=== PATIENT | female | born 1980 | race Caucasian/White ===

== ENCOUNTER 2019-07-18 13:37 | Inpatient (IN) | payer SELFPAY ==
[2019-07-18 13:43] VITALS: BP 223/110; PULSE 106; RESP 18; TEMP 36.7; O2SAT 96; BMI 33.9
--- NOTE | 2019-07-18 14:05 | W.ED.AMS ---
HPI - Altered Mental Status General: Chief Complaint: Altered Mental Status Stated Complaint: BIZARRE BEHAVIOR Time Seen by Provider: 07/18/19 13:50 Source: EMS Mode of arrival: EMS Limitations: altered mental status History of Present Illness: HPI narrative: Patient was brought in by EMS and law enforcement after being found sitting on the side of the road and talking to herself. She had monitored some things about asking God to take it with the dirt out of her. According to her boyfriend as was reported to me by EMS, the patient has been this way all day. He believes she may have taken some methamphetamine. The patient was aggressive combative and violent in the ambulance and she was given some ketamine on route. Patient is not speaking to me, is alert and is exhibiting bizarre behavior. MD complaint: intoxication Onset (ago): unknown Severity: severe Context: drug abuse Associated symptoms: Reports delusions Review of Systems General: Reports: ROS unobtainable due to mental status Physical Exam Const: COMMON NORMALS: alert EXAM LIMITATIONS: altered mental status GENERAL APPEARANCE: combative and disheveled ORIENTATION/CONSCIOUSNESS: not oriented to person, not oriented to place and not oriented to time Resp: COMMON NORMALS: clear to auscultation bilaterally AUSCULTATION: clear to auscultation bilaterally Cardio: COMMON NORMALS: regular rate, regular rhythm, S1 normal heart sound, S2 normal heart sound, no gallops, no clicks and no murmurs RATE: regular rate RHYTHM: regular rhythm HEART SOUNDS: S1 normal and S2 normal Extremity: COMMON NORMALS: normal to inspection, normal capillary refill and no clubbing, cyanosis or edema Neuro: SENSORIUM/ORIENTATION: Yes alert, No oriented to person, No oriented to place, No oriented to time and No orientation impaired Psych: THOUGHT CONTENT: Yes delusion(s) OTHER: unable to assess due to her present state Course Consultations: Consultation #1: Dr. Crump, psychiatrist. He kindly accepted her to his service. Time: 17:20 Vital Signs: Vital signs: Vital Signs Temperature 98.1 F 07/18/19 13:43 Pulse Rate 84 07/18/19 22:05 Respiratory Rate 18 07/18/19 22:05 Blood Pressure 191/135 07/18/19 22:05 Pulse Oximetry 96 07/18/19 22:05 MDM - Altered Mental Status MDM Narrative: Medical decision making narrative: 39-year-old female patient was brought in today in acute psychosis. Psychosis is likely precipitated by methamphetamine abuse. While in the emergency department she had mild hypokalemia and she was given oral potassium. She is medically cleared and admitted to the neuropsychiatric unit for further evaluation and management. Medical Records: Attestation: I reviewed the patient's medical records. Lab Data: Labs: Lab Results 07/18/19 07/18/19 07/18/19 Range/Units 14:00 14:00 14:00 WBC (4.0-10.0) 10^3/ uL RBC (4.1-5.3) 10^6/u L Hgb (11.5-15.3) g/dL Hct (37.0-47.0) % MCV (81-99) fL MCH (28.0-34.0) pg MCHC (30.0-36.0) g/dL RDW (12.1-15.1) % Plt Count (130-400) 10^3/c mm MPV (7.4-10.4) fL Neut % (Auto) % Lymph % (Auto) % Redwood % (Auto) % Eos % (Auto) % Baso % (Auto) % Neut # (Auto) (1.8-7.7) 10^3/u L Lymph # (Auto) (0.8-4.8) 10^3/u L Redwood # (Auto) (0.2-0.9) 10^3/u L Eos # (Auto) (0.0-0.8) 10^3/u L Baso # (Auto) (0.0-0.1) 10^3/u L Nucleated RBC % (a uto) % Nucleated RBCs # /100WBC Sodium (136-145) mmol/L Potassium (3.5-5.1) mmol/L Chloride (98-107) mmol/L Carbon Dioxide (22-29) mmol/L Anion Gap (5-19) BUN (6-20) mg/dL Creatinine (0.5-0.9) mg/dL GFR Calculation (90-130) mL/min Glucose (65-115) mg/dL Calculated Osmolal ity (285-295) mOsm/k g Calcium (8.5-10.5) mg/dL Total Bilirubin (0.15-1.2) mg/dL AST (0-32) U/L ALT (0-33) U/L Alkaline Phosphata se (35-105) IU/L Total Protein (6.6-8.7) g/dL Albumin (3.5-5.2) g/dL Globulin (1.3-4.6) g/dL TSH (0.27-4.20) uIU/ mL HCG, Qual Negative (Negative) Urine Color Yellow (Yellow) Urine Appearance Sl hazy (CLEAR) Urine pH 6.5 (5-7) Ur Specific Gravit y 1.010 (1.005-1.030) Urine Protein 1+ H (Negative) Urine Glucose (UA) Norm (Normal) Urine Ketones Negative (Negative) Urine Blood 2+ H (Negative) Urine Nitrate Negative (Negative) Urine Bilirubin Neg (NEGATIVE) Urine Urobilinogen Norm (Negative) mg/dL Ur Leukocyte Gin ase Negative (Negative) Urine RBC 0-4 H (0-2) /hpf Urine WBC 0-4 H (0-5) /hpf Ur Squamous Epith Cells 10-15 H (0-5) Urine Bacteria 1+ H (NONE) Hyaline Casts 0-4 H Urine Mucus 1+ Urine Opiates Scre en Negative (Negative) ng/mL Acetaminophen (10-30) ug/mL Ur Barbiturates Sc reen Negative (Negative) ng/mL Ur Phencyclidine S crn Negative (Negative) ng/mL Ur Amphetamines Sc reen Positive H (Negative) ng/mL U Benzodiazepines Scrn Negative (Negative) ng/mL Urine Cocaine Scre en Negative (Negative) ng/mL U Marijuana (THC) Screen Negative (Negative) ng/mL Ethyl Alcohol (0-10) mg/dL 07/18/19 07/18/19 Range/Units 14:37 14:37 WBC 13.3 H (4.0-10.0) 10^3/ uL RBC 4.21 (4.1-5.3) 10^6/u L Hgb 10.7 L (11.5-15.3) g/dL Hct 33.3 L (37.0-47.0) % MCV 79.1 L (81-99) fL MCH 25.4 L (28.0-34.0) pg MCHC 32.1 (30.0-36.0) g/dL RDW 13.4 (12.1-15.1) % Plt Count 498 H (130-400) 10^3/c mm MPV 9.4 (7.4-10.4) fL Neut % (Auto) 83.8 % Lymph % (Auto) 12.4 % Redwood % (Auto) 2.9 % Eos % (Auto) 0.2 % Baso % (Auto) 0.4 % Neut # (Auto) 11.1 H (1.8-7.7) 10^3/u L Lymph # (Auto) 1.6 (0.8-4.8) 10^3/u L Redwood # (Auto) 0.4 (0.2-0.9) 10^3/u L Eos # (Auto) 0.0 (0.0-0.8) 10^3/u L Baso # (Auto) 0.1 (0.0-0.1) 10^3/u L Nucleated RBC % (a uto) 0 % Nucleated RBCs # 0.0 /100WBC Sodium 140 (136-145) mmol/L Potassium 2.9 L (3.5-5.1) mmol/L Chloride 98 (98-107) mmol/L Carbon Dioxide 26 (22-29) mmol/L Anion Gap 18.9 (5-19) BUN 10 (6-20) mg/dL Creatinine 0.8 (0.5-0.9) mg/dL GFR Calculation 80.3 L (90-130) mL/min Glucose 134 H (65-115) mg/dL Calculated Osmolal ity 288 (285-295) mOsm/k g Calcium 9.7 (8.5-10.5) mg/dL Total Bilirubin 0.5 (0.15-1.2) mg/dL AST 15 (0-32) U/L ALT 15 (0-33) U/L Alkaline Phosphata se 100 (35-105) IU/L Total Protein 8.1 (6.6-8.7) g/dL Albumin 4.6 (3.5-5.2) g/dL Globulin 3.5 (1.3-4.6) g/dL TSH 2.70 (0.27-4.20) uIU/ mL HCG, Qual (Negative) Urine Color (Yellow) Urine Appearance (CLEAR) Urine pH (5-7) Ur Specific Gravit y (1.005-1.030) Urine Protein (Negative) Urine Glucose (UA) (Normal) Urine Ketones (Negative) Urine Blood (Negative) Urine Nitrate (Negative) Urine Bilirubin (NEGATIVE) Urine Urobilinogen (Negative) mg/dL Ur Leukocyte Gin ase (Negative) Urine RBC (0-2) /hpf Urine WBC (0-5) /hpf Ur Squamous Epith Cells (0-5) Urine Bacteria (NONE) Hyaline Casts Urine Mucus Urine Opiates Scre en (Negative) ng/mL Acetaminophen < 5.0 L (10-30) ug/mL Ur Barbiturates Sc reen (Negative) ng/mL Ur Phencyclidine S crn (Negative) ng/mL Ur Amphetamines Sc reen (Negative) ng/mL U Benzodiazepines Scrn (Negative) ng/mL Urine Cocaine Scre en (Negative) ng/mL U Marijuana (THC) Screen (Negative) ng/mL Ethyl Alcohol < 10 (0-10) mg/dL Discharge Plan Discharge Patient Disposition: Admitted As Inpatient Admit Provider: Lan Crump Clinical Impression: Acute psychosis, Substance abuse, Acute hypokalemia Condition: Stable Coding Level of Care Code ED Planning Consultant for Yelena Fwd Exam Detailed
[2019-07-18 14:18] LABS: HCG Qualitative Urine. Negative (Negative)
[2019-07-18 14:49] LABS: Basophils # 0.1 10^3/uL (0.0-0.1); Basophils % 0.4 %; Eosinophils % 0.2 %; Hematocrit 33.3 % (37.0-47.0); Hemoglobin 10.7 g/dL (11.5-15.3); Lymphocytes # 1.6 10^3/uL (0.8-4.8); Lymphocytes % 12.4 %; Mean Corpuscular HGB Conc 32.1 g/dL (30.0-36.0); Mean Corpuscular Hemoglobin 25.4 pg (28.0-34.0); Mean Corpuscular Volume 79.1 fL (81-99); Mean Platelet Volume 9.4 fL (7.4-10.4); Monocytes # 0.4 10^3/uL (0.2-0.9); Monocytes % 2.9 %; Neutrophils # 11.1 10^3/uL (1.8-7.7); Neutrophils % 83.8 %; Nucleated Red Blood Cells % 0 %; Platelet Count 498 10^3/cmm (130-400); Red Blood Count 4.21 10^6/uL (4.1-5.3); Red Cell Distribution Width 13.4 % (12.1-15.1); White Blood Count 13.3 10^3/uL (4.0-10.0)
[2019-07-18 15:16] LABS: Alanine Aminotransferase 15 U/L (0-33); Albumin Level 4.6 g/dL (3.5-5.2); Alkaline Phosphatase 100 IU/L (35-105); Anion Gap 18.9 (5-19); Aspartate Amino Transferase 15 U/L (0-32); Blood Urea Nitrogen 10 mg/dL (6-20); Calcium 9.7 mg/dL (8.5-10.5); Carbon Dioxide 26 mmol/L (22-29); Chloride 98 mmol/L (98-107); Globulin 3.5 g/dL (1.3-4.6); Glomerular Filtration Rate 80.3 mL/min (90-130); Glucose 134 mg/dL (65-115); Osmolality Calculated 288 mOsm/kg (285-295); Sodium 140 mmol/L (136-145); Total Bilirubin 0.5 mg/dL (0.15-1.2); Total Protein 8.1 g/dL (6.6-8.7)
[2019-07-18 15:40] LABS: Acetaminophen < 5.0 ug/mL (10-30); Alcohol Level < 10 mg/dL (0-10)
[2019-07-18 15:41] LABS: Potassium 2.9 mmol/L (3.5-5.1)
[2019-07-18 16:37] LABS: Glucose Urine UA Norm (Normal); Protein Urine 1+ (Negative); Urine Appearance SL Hazy (CLEAR); Urine Color Yellow (Yellow); pH Urine 6.5 (5-7)
[2019-07-18 16:38] LABS: Add Urine Microscopic? YES; Bilirubin Urine Neg (NEGATIVE); Blood Urine 2+ (Negative); Ketones Urine Negative (Negative); Leukocyte Esterase Urine Negative (Negative); Nitrate Urine Negative (Negative); Urobilinogen Urine Norm (Negative)
[2019-07-18 16:42] LABS: Add Urine Culture? No; Bacteria Urine 1+; Hyaline Casts Urine 0-4; Mucus Urine 1+; RBC Urine 0-4 /hpf (0-2); WBC Urine 0-4 /hpf (0-5)
[2019-07-18 16:46] LABS: Amphetamines Screen Urine Positive (Negative); Barbiturates Screen Urine Negative (Negative); Benzodiazepines Screen Urine Negative (Negative); Cocaine Screen Urine Negative (Negative); Opiate Screen Urine Negative (Negative); PCP Screen Urine Negative (Negative); THC Screen Urine Negative (Negative)
[2019-07-18] MEDS: potassium chloride oral liq 20 mEq/15 mL UDC 40 MEQ PO (17:49)
[2019-07-18] MEDS: potassium chloride premix 40 MEQ/100 ML PREMIX 25 MEQ IV (19:55)
[2019-07-18] MEDS: ziprasidone 20 mg/mL SDV IM (19:55)
[2019-07-18 22:00] VITALS: BP 177/76; PULSE 85; RESP 19; TEMP 36.8; O2SAT 98
[2019-07-18 22:05] VITALS: BP 191/135; PULSE 84; RESP 18; O2SAT 96
[2019-07-19 05:00] VITALS: BMI 33.9
[2019-07-19 06:00] VITALS: BP 156/99; PULSE 92; RESP 17; TEMP 37.2; O2SAT 96
[2019-07-19] MEDS: LORazepam 2 mg Tablet PO (07:26)
--- NOTE | 2019-07-19 07:28 | PC.NURSE ---
Pt appeared very anxious and ashamed. Melissa CATHERINEcharge preparation technician suggested we give her PO Ativan. PT agreeds that she needed some ativan. med administered po without complications.
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
[2019-07-19 13:06] VITALS: BP 142/80; PULSE 70; RESP 18; TEMP 36.6; O2SAT 97
[2019-07-19] MEDS: ARIPiprazole 10 mg Tablet 5 MG PO (17:35)
[2019-07-19] MEDS: desvenlafaxine 50 mg Tablet PO (17:37)
[2019-07-19 20:38] VITALS: BP 144/91; PULSE 97; RESP 18; TEMP 37.2; O2SAT 95
[2019-07-20 06:00] VITALS: BP 137/89; PULSE 77; RESP 18; TEMP 36.8; O2SAT 96
[2019-07-20] MEDS: desvenlafaxine 50 mg Tablet PO (08:29)
[2019-07-20] MEDS: ARIPiprazole 10 mg Tablet 5 MG PO (08:30)
[2019-07-20 13:27] VITALS: BP 134/96; PULSE 74; RESP 18; TEMP 36.9; O2SAT 97
--- NOTE | 2019-07-20 15:03 | PM.NPN ---
Subjective NPU Subjective: Interval history: patient reports that she is starting to feel better but still does not feel quite like she used to. She is tolerating initiationn of medication well. She did not sleep all night. She reports anxiety while on the unit. She denies suicidal or homicidal ideation. Mental Status Exam MSE Comments: This is an obese, white female, with streaks of blue hair at the edge of her hair on her face, with multiple tattoos on her exposed skin, with adequate dress, and limited grooming and eye contact. No abnormal movements, except for psychomotor retardation. Speech was nl rate and volume . Mood described as sad; affect c/w depressed moodl. Thought process more organized . Thought content: patient denied any suicidal or homicidal ideation t. She denied homicidal ideation. There were no delusions reported, but a kind of hyper-mormonism supernatural kind of delusional network appears to exist. She denied any auditory or visual hallucinations. Attention and concentration are limited with some awkward pauses, and memory is somewhat reliable, but none were formally tested. She is alert and oriented times three. Insight and judgment are impaired. Cognition: Level of Consciousness: Combative, Disoriented and Inappropriate Patient Cognition Impaired: Yes Ability to Follow Directions: Poor Patient Orientation (long list): Person Hallucination Type: None Affect: Affect Description: Appropriate Behavior: Patient Behavior: Appropriate and Cooperative Speech Pattern: Appropriate and Clear Vitals/I&O/Wt Last Vital Signs Temp 98.4 F 07/20/19 13:27 Pulse 74 07/20/19 13:27 Resp 18 07/20/19 13:27 BP 134/96 07/20/19 13:27 Pulse Ox 97 07/20/19 13:27 Weight last 48 hrs Weight 95.254 kg Weight 95.254 kg Data NPU : 07/18/19 14:37 07/18/19 14:37 A&P Assessment and plan (1) Acute psychosis: This is a 39 year old, female, with a history of psychiatric hospitalizations, but none for a while, with some history of addiction that is unclear in relation to methamphetamine, a reported history of trauma, lethality, and medication management reporting that she has been off of her medication and recently had some alcohol or other drug use, which may be the nidus of this confusion, with current UDS positive for methamphetamine. Continue current medication, except: continue Abilify 5 mg po qam and titrate to effect as quickly as she allows. continue Pristiq 50 mg po qam. Start trazodone 50 mg at bedtime and again prn insomnia lorazepam 0.5 mg bid prn anxiety ONLY WHILE IN THE HOSPITAL Continue q 15-minute checks. Encourage individual, group, and milieu therapy. Will work with social worker school to identify outpatient services and consider whether sober living would be indicated, at the highest level of care to which she is willing to commit. Status: Acute (2) Substance abuse: Status: Acute (3) Acute hypokalemia: Status: Acute Involuntary Hold Information 96 Hour Hold: 96 Hour Involuntary Admission: Yes 96 Hour Hold Ending Date: 07/24/19 96 Hour Hold Ending Time: 17:48 Attestations NPU Medical Necessity Statement*: patient to remain in the hospital another 2-3 nights until medication efficacy and tolerability are established. Coding Level of Care Code Acute Concrete Spreader for Yelena Wilder Diagnoses Acute psychosis F23 Substance abuse F19.10 Acute hypokalemia E87.6
[2019-07-20] MEDS: LORazepam 0.5 mg Tablet PO (15:15)
[2019-07-20 21:05] VITALS: BP 141/94; PULSE 90; RESP 21; TEMP 37.1; O2SAT 95
--- NOTE | 2019-07-20 21:10 | PC.NURSE ---
Attempted to give pt scheduled Trazodone, pt refused med.
[2019-07-21 06:00] VITALS: BP 145/87; PULSE 79; RESP 18; TEMP 36.8; O2SAT 98
[2019-07-21] MEDS: desvenlafaxine 50 mg Tablet PO (08:30)
[2019-07-21] MEDS: ARIPiprazole 10 mg Tablet 5 MG PO (08:30)
--- NOTE | 2019-07-21 10:20 | PM.NPN ---
Subjective NPU Subjective: Interval history: patient reports that she feels so fatigued that she refused the trazodone last night. However, she continued to awaken throughout the night. She denies suicidal or homicidal ideation. Mental Status Exam MSE Comments: This is an obese, white female, with streaks of blue hair at the edge of her hair on her face, with multiple tattoos on her exposed skin, with adequate dress, and limited grooming and eye contact. No abnormal movements, except for psychomotor retardation. Speech was nl rate and volume . Mood described as sad; affect c/w depressed moodl. Thought processes organized . Thought content: patient denied any suicidal or homicidal ideation t. She denied homicidal ideation. There were no delusions reported, but a kind of hyper-rastafarian supernatural kind of delusional network appears to exist. She denied any auditory or visual hallucinations. Attention and concentration are good, and memory is reliable, but none were formally tested. She is alert and oriented times three. Insight and judgment are good. Cognition: Level of Consciousness: Combative, Disoriented and Inappropriate Patient Cognition Impaired: Yes Ability to Follow Directions: Poor Patient Orientation (long list): Person Hallucination Type: None Affect: Affect Description: Appropriate Behavior: Patient Behavior: Appropriate and Cooperative Speech Pattern: Appropriate and Clear Vitals/I&O/Wt Last Vital Signs Temp 98.3 F 07/21/19 06:00 Pulse 79 07/21/19 06:00 Resp 18 07/21/19 06:00 BP 145/87 07/21/19 06:00 Pulse Ox 98 07/21/19 06:00 Data NPU : 07/18/19 14:37 07/18/19 14:37 A&P Assessment and plan (1) Acute psychosis: This is a 39 year old, female, with a history of psychiatric hospitalizations, but none for a while, with some history of addiction that is unclear in relation to methamphetamine, a reported history of trauma, lethality, and medication management reporting that she has been off of her medication and recently had some alcohol or other drug use, which may be the nidus of this confusion, with current UDS positive for methamphetamine. Continue current medication, except: continue Abilify 5 mg po qam and titrate to effect as quickly as she allows. continue Pristiq 50 mg po qam. Start trazodone 50 mg at bedtime and again prn insomnia lorazepam 0.5 mg bid prn anxiety ONLY WHILE IN THE HOSPITAL Hospital day #3: will hold Abilify and assess the degree to which it is causing her fatigue and then try the trazodone at bedtime tonight. Continue q 15-minute checks. Encourage individual, group, and milieu therapy. Will work with health and social care teacher to identify outpatient services and consider whether sober living would be indicated, at the highest level of care to which she is willing to commit. Status: Acute (2) Substance abuse: Status: Acute (3) Acute hypokalemia: Status: Acute Involuntary Hold Information 96 Hour Hold: 96 Hour Involuntary Admission: Yes 96 Hour Hold Ending Date: 07/24/19 96 Hour Hold Ending Time: 17:48 Attestations NPU Medical Necessity Statement*: Patient will remain in the hospital another 1-2 midnights until her medication regimen is perceived as effective and tolerable. Coding Level of Care Code Acute Voip Network Engineer for Yelena Wilder Diagnoses Acute psychosis F23 Substance abuse F19.10 Acute hypokalemia E87.6
[2019-07-21 12:45] VITALS: BP 143/90; PULSE 74; RESP 18; TEMP 36.9; O2SAT 97
--- NOTE | 2019-07-21 20:29 | PC.NURSE ---
PT OFFERED SCHEDULED TRAZODONE, PT REFUSED MED.
[2019-07-21 21:13] VITALS: BP 147/96; PULSE 82; RESP 18; TEMP 37.3; O2SAT 98
[2019-07-22 06:00] VITALS: BP 138/91; PULSE 77; RESP 18; TEMP 37.1; O2SAT 96
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
[2019-07-22] MEDS: desvenlafaxine 50 mg Tablet PO (11:26)
[2019-07-22 12:37] VITALS: BP 138/91; PULSE 77; RESP 18; TEMP 37.1; O2SAT 96
== END 2019-07-22 12:50 | disposition home or self-care (01) | DRG 885 ==
LOC: ER 17:54 → NP 17:56
PROVIDERS: Admitting Provider Psychiatry & Neurology Psychiatry; Emergency Provider Family Medicine; Family Provider Nurse Practitioner; PCP Nurse Practitioner; Visit Provider Psychiatry & Neurology Psychiatry
DX: F23 Brief psychotic disorder (principal); R45.851 Suicidal ideations; E87.6 Hypokalemia; F17.210 Nicotine dependence, cigarettes, uncomplicated
CPT/HCPCS: 12345; 36415; 80053; 80306; 80307; 81001; 81025; 84443; 85025; 96372; 99285; A9270; J3480; J3486

== ENCOUNTER 2019-08-31 15:31 | Emergency (ER) | payer SELFPAY ==
[2019-08-31 15:44] VITALS: BP 154/94; PULSE 79; RESP 14; TEMP 35.8; O2SAT 98; BMI 38.2
--- NOTE | 2019-08-31 16:49 | CTR_ITS ---
PROCEDURE INFORMATION: Exam: CT Head Without Contrast Exam date and time: 08/31/2019 5:02 PM Age: 39 years old Clinical indication: Pain and injury or trauma; Fall; Headache; Injury details: Hit back and RT side of head on step; Additional info: Headache after fall and hitting head TECHNIQUE: Imaging protocol: Computed tomography of the head without contrast. Radiation optimization: All CT scans at this facility use at least one of these dose optimization techniques: automated exposure control; mA and/or kV adjustment per patient size (includes targeted exams where dose is matched to clinical indication); or iterative reconstruction. COMPARISON: No relevant prior studies available. RADIATION DOSE METRICS: Total DLP: 754.72 mGy-cm FINDINGS: Brain: Normal. No hemorrhage. Unremarkable white matter. No mass effect. Ventricles: Normal. No ventriculomegaly. Bones/joints: Unremarkable. No acute fracture. Sinuses: Visualized sinuses are unremarkable. No fluid levels. Mastoid air cells: Visualized mastoid air cells are well aerated. Soft tissues: Unremarkable. CT/CT head wo con* [id number] IMPRESSION: No acute intracranial abnormality. Radiation Dose CTDIVOL = (mGy): DLP = 754.72 (mGy-cm)
--- NOTE | 2019-08-31 17:37 | ED_ITS ---
HPI - Headache General: Chief Complaint: Headache Stated Complaint: fell & hit head on 08/29 Time Seen by Provider: 08/31/19 16:57 History of Present Illness: HPI Narrative: Patient complains about headache started today she fell yesterday hit the back of her head on stairs she said really did not hit that hard but her head is been hurting Tylenol not helping she like some medication help with a headache. MD elicited complaint: headache Pertinent past history: recent trauma Onset (ago): day(s) Onset description: suddenly Location: occipital Severity: mild Quality & Timing: aching Exacerbating factors: none Relieving factors: nothing Context: occurred with exertion/activity (On stairs) Associated symptoms: Reports no associated symptoms; Deny chest pain, fever(s), nausea, rash or vomiting Review of Systems Const: Denies: fever(s), chills or body aches Eyes: Denies: change in vision or blurry vision ENMT: Denies: throat pain or nasal congestion Card: Denies: chest pain or dyspnea on exertion Resp: Denies: dyspnea, productive cough or non-productive cough GI: Denies: abdominal pain, nausea or vomiting Musc: Denies: extremity pain Skin/Breast: Denies: rash Neuro: Reports: headache(s) Psych: Denies: anxiety or depression Moy/Lymph: Denies: easy bruising PFSH ED PFSH: Social History Smoking and tobacco status: never smoked Physical Exam Const: COMMON NORMALS: no acute distress, average body habitus and patient oriented x3 HENMT: COMMON NORMALS: normocephalic HEAD & SCALP: normal to inspection and normocephalic FACE & SINUS: normal facial exam Eye: COMMON NORMALS: conjunctivae normal GENERAL EYE: appearance normal, both eyes and all related structures CONJUNCTIVA: Yes conjunctivae normal Neck/C-Spine: COMMON NORMALS: full ROM and no JVD GENERAL: Yes trachea midline OTHER: To trapezius both sides no cervical spine pain Chest: COMMONS NORMALS: normal inspection of the chest Resp: COMMON NORMALS: normal respiratory effort and clear to auscultation bilaterally AUSCULTATION: clear to auscultation bilaterally Cardio: COMMON NORMALS: no JVD, regular rate and regular rhythm RATE: regular rate RHYTHM: regular rhythm GI: COMMON NORMALS: Normal to inspection, nondistended, normoactive bowel sounds present Extremity: COMMON NORMALS: normal to inspection and full ROM Neuro: COMMON NORMALS: patient oriented x3 and CN's II-XII intact bilaterally Course Vital Signs: Vital signs: Vital Signs Temperature 96.4 F L 08/31/19 15:44 Pulse Rate 79 08/31/19 15:44 Respiratory Rate 14 08/31/19 15:44 Blood Pressure 154/94 08/31/19 15:44 Pulse Oximetry 98 08/31/19 15:44 Discharge Plan Discharge Patient Disposition: Home, Self-Care Clinical Impression: Tension headache Condition: Stable Prescriptions: New Fioricet 50-300-40 mg capsule 1 cap PO Q6H PRN (Reason: pain) Qty: 10 RF: 0 No Action lorazepam 0.5 mg Tablet 0.5 mg PO BID PRN (Reason: Anxiety) Qty: 30 RF: 4 levothyroxine 150 mcg Tablet 75 mcg PO DAILY Qty: 30 RF: 4 Premarin 0.625 mg Tablet 0.625 mg PO DAILY Qty: 30 RF: 4 aripiprazole 10 mg Tablet 5 mg PO DAILY Qty: 30 RF: 4 desvenlafaxine succinate [Pristiq] 50 mg Tablet Extended Release 24 Hr 50 mg PO DAILY Qty: 30 RF: 4 Excedrin Migraine 250-250-65 mg Tablet 2 tab PO PRN RF: 0 trazodone 50 mg tablet 50 mg PO BEDTIME PRN (Reason: Sleep) RF: 0 Discharge Orders: Discharge Order (Routine); Ordered 08/31/19 Ordered By: Kevin Frausto Referrals: Carolyn Orozco, PLODDING OPERATOR [Primary Care Provider] - Discharge Diet: Usual diet Discharge Activity: Increase activity as tolerated Patient Instructions: Acute Headache (ED) Activity Restrictions/Additional Instructions: Follow-up with medical provider as directed. Take medications as prescribed. Return to the ER or your medical provider if condition worsens. Please read and understand discharge instructions. If any questions ask please. Coding Level of Care Code ED Endoscopy Support Specialist for Yelena Wilder
[2019-08-31 17:39] VITALS: BP 134/95; PULSE 76; RESP 16; O2SAT 95
== END 2019-08-31 17:39 | disposition home or self-care (01) ==
PROVIDERS: Emergency Provider Nurse Practitioner Family; PCP Nurse Practitioner
DX: G44.209 Tension-type headache, unspecified, not intractable (principal)
CPT/HCPCS: 12345; 70450; 99281; 99282

== ENCOUNTER 2020-01-09 13:42 | Inpatient (IN) | payer MEDICAID, SELFPAY ==
--- NOTE | 2020-01-09 13:48 | ED_ITS ---
HPI - Psych General: Chief Complaint: Psychiatric Symptoms Stated Complaint: PSYCH EVAL Time Seen by Provider: 01/09/20 13:44 Source: patient and EMS Mode of arrival: EMS Limitations: no limitations History of Present Illness: HPI Narrative: 39-year-old female who brought by EMS for psychosis along with depression and suicidality. Patient here does admit to meth use. She is very difficult to get a history from. She has flight of ideas and states she cannot do better she will have terrible thoughts. She is whispering to herself. EMS states that she attempted to jump out of the ambulance and stated she want to end it all. Here she will not give me much history at all at this time besides that she is having severe spiritual thoughts but will not go into detail. Associated symptoms: Reports depression Review of Systems Const: Denies: fever(s), chills, body aches or change in appetite Eyes: Denies: blurry vision or eye discomfort ENMT: Denies: throat pain or dental pain Card: Denies: chest pain Resp: Denies: dyspnea GI: Denies: abdominal pain, nausea, vomiting or diarrhea : Denies: dysuria Musc: Denies: neck pain or back pain Skin/Breast: Denies: rash Neuro: Denies: headache(s) Psych: Reports: anxiety, depression and paranoia Moy/Lymph: Denies: easy bruising All/Imm: Denies: urticaria PFSH ED 2 PFSH: Social History Smoking and tobacco status: never smoked Physical Exam Const: COMMON NORMALS: no acute distress, patient oriented x3 and healthy appearing HENMT: COMMON NORMALS: normocephalic and atraumatic HEAD & SCALP: normocephalic and atraumatic Eye: COMMON NORMALS: Equal, round and reactive pupils present and EOMs intact bilaterally PUPIL: Yes Equal, round and reactive pupils present Neck/C-Spine: COMMON NORMALS: full ROM and supple Chest: COMMONS NORMALS: normal inspection of the chest and normal palpation of entire chest wall Resp: COMMON NORMALS: normal respiratory effort, No retractions, No use of accessory muscles and clear to auscultation bilaterally AUSCULTATION: clear to auscultation bilaterally Cardio: COMMON NORMALS: regular rate, regular rhythm and No murmurs present (Cardio) RATE: regular rate RHYTHM: regular rhythm GI: COMMON NORMALS: Normal to inspection, nondistended, normoactive bowel sounds present, Soft to palpation, non-tender and no masses PALPATION: Yes Soft to palpation Extremity: COMMON NORMALS: normal to inspection and full ROM Neuro: COMMON NORMALS: patient oriented x3, moves all extremities and no focal motor deficits Psych: COMMON NORMALS: cooperative APPEARANCE: Yes disheveled ATTITUDE: Yes paranoid and Yes Withdrawn affect present ACTIVITY/MOTOR BEHAVIOR: Yes fidgeting MOOD & AFFECT: Yes depressed mood and Yes anxious THOUGHT PROCESS: disorganized and Illogical thought process present Skin: COMMON NORMALS: no rashes or lesions noted and no wounds GENERAL SKIN EXAM: no rashes or lesions noted MDM - Psych MDM Narrative: Medical decision making narrative: Patient presents here with suicidal ideation along with acute psychosis. This is likely drug-induced. Patient had to be sedated here she was becoming combative. Patient is medically cleared I spoke to Dr. Germain and will admit. Lab Data: Labs: Lab Results 01/09/20 01/09/20 01/09/20 Range/Units 14:36 14:36 14:46 WBC 11.3 H (4.0-10.0) 10^3/ uL RBC 4.26 (4.1-5.3) 10^6/u L Hgb 11.0 L (11.5-15.3) g/dL Hct 34.3 L (37.0-47.0) % MCV 80.5 L (81-99) fL MCH 25.8 L (28.0-34.0) pg MCHC 32.1 (30.0-36.0) g/dL RDW 14.6 (12.1-15.1) % Plt Count 559 H (130-400) 10^3/c mm MPV 9.1 (7.4-10.4) fL Neut % (Auto) 71.0 % Lymph % (Auto) 18.1 % Deuel % (Auto) 5.1 % Eos % (Auto) 4.7 % Baso % (Auto) 0.8 % Neut # (Auto) 8.05 H (1.8-7.7) 10^3/u L Lymph # (Auto) 2.1 (0.8-4.8) 10^3/u L Deuel # (Auto) 0.6 (0.2-0.9) 10^3/u L Eos # (Auto) 0.5 (0.0-0.8) 10^3/u L Baso # (Auto) 0.1 (0.0-0.1) 10^3/u L Nucleated RBC % (a uto) 0 % Nucleated RBCs # 0.0 /100WBC Sodium 135 L (136-145) mmol/L Potassium 3.6 (3.5-5.1) mmol/L Chloride 99 (98-107) mmol/L Carbon Dioxide 24 (22-29) mmol/L Anion Gap 15.6 (5-19) BUN 16 (6-20) mg/dL Creatinine 0.7 (0.5-0.9) mg/dL GFR Calculation 93.6 (90-130) mL/min Glucose 112 (65-115) mg/dL Calculated Osmolal ity 282 L (285-295) mOsm/k g Calcium 9.4 (8.5-10.5) mg/dL Total Bilirubin 0.5 (0.15-1.2) mg/dL AST 19 (0-32) U/L ALT 19 (0-33) U/L Alkaline Phosphata se 118 H (35-105) IU/L Total Protein 8.2 (6.6-8.7) g/dL Albumin 4.1 (3.5-5.2) g/dL Globulin 4.1 (1.3-4.6) g/dL HCG, Qual Negative (Negative) Salicylates < 0.3 L (3-10) mg/dL Acetaminophen < 5.0 L (10-30) ug/mL Ethyl Alcohol < 10 (0-10) mg/dL Discharge Plan Discharge Patient Disposition: Admitted As Inpatient Clinical Impression: Acute psychosis, Suicidal ideation Condition: Stable Referrals: Carolyn Orozco, WATER TAXI FERRY OPERATOR [Primary Care Provider] - Coding Level of Care Code ED Reducing Salon Attendant for g Fwd Exam Comprehensive
[2020-01-09 13:49] VITALS: BP 140/114; PULSE 95; RESP 18; TEMP 36.8; O2SAT 98
[2020-01-09] MEDS: haloperidol inj 5 mg/mL INJ 1 mL IM (14:06)
[2020-01-09] MEDS: LORazepam 2 mg/mL INJ 1 mL IM (14:07)
[2020-01-09 14:46] LABS: Basophils # 0.1 10^3/uL (0.0-0.1); Basophils % 0.8 %; Eosinophils # 0.5 10^3/uL (0.0-0.8); Eosinophils % 4.7 %; Hematocrit 34.3 % (37.0-47.0); Lymphocytes # 2.1 10^3/uL (0.8-4.8); Lymphocytes % 18.1 %; Mean Corpuscular HGB Conc 32.1 g/dL (30.0-36.0); Mean Corpuscular Hemoglobin 25.8 pg (28.0-34.0); Mean Corpuscular Volume 80.5 fL (81-99); Mean Platelet Volume 9.1 fL (7.4-10.4); Monocytes # 0.6 10^3/uL (0.2-0.9); Monocytes % 5.1 %; Neutrophils # 8.05 10^3/uL (1.8-7.7); Nucleated Red Blood Cells % 0 %; Platelet Count 559 10^3/cmm (130-400); Red Blood Count 4.26 10^6/uL (4.1-5.3); Red Cell Distribution Width 14.6 % (12.1-15.1); White Blood Count 11.3 10^3/uL (4.0-10.0)
[2020-01-09 15:11] LABS: Alanine Aminotransferase 19 U/L (0-33); Albumin Level 4.1 g/dL (3.5-5.2); Alkaline Phosphatase 118 IU/L (35-105); Aspartate Amino Transferase 19 U/L (0-32); Blood Urea Nitrogen 16 mg/dL (6-20); Calcium 9.4 mg/dL (8.5-10.5); Carbon Dioxide 24 mmol/L (22-29); Chloride 99 mmol/L (98-107); Globulin 4.1 g/dL (1.3-4.6); Glomerular Filtration Rate 93.6 mL/min (90-130); Glucose 112 mg/dL (65-115); Osmolality Calculated 282 mOsm/kg (285-295); Sodium 135 mmol/L (136-145); Total Bilirubin 0.5 mg/dL (0.15-1.2); Total Protein 8.2 g/dL (6.6-8.7)
[2020-01-09 15:15] LABS: Acetaminophen < 5.0 ug/mL (10-30); Alcohol Level < 10 mg/dL (0-10); Salicylate < 0.3 mg/dL (3-10)
[2020-01-09 15:17] LABS: Anion Gap 15.6 (5-19); Potassium 3.6 mmol/L (3.5-5.1)
[2020-01-09 15:28] LABS: HCG Qualitative Urine. Negative (Negative)
[2020-01-09 15:54] VITALS: PULSE 99; RESP 20; O2SAT 97
[2020-01-09 16:16] VITALS: BP 127/85; PULSE 80; RESP 16; O2SAT 98
[2020-01-09 16:26] VITALS: BP 148/93; PULSE 84; RESP 18; TEMP 36.9
[2020-01-09 17:58] LABS: Amphetamines Screen Urine Positive (Negative); Barbiturates Screen Urine Negative (Negative); Benzodiazepines Screen Urine Negative (Negative); Cocaine Screen Urine Negative (Negative); Opiate Screen Urine Negative (Negative); PCP Screen Urine Negative (Negative); THC Screen Urine Negative (Negative)
[2020-01-09 22:00] VITALS: BP 132/89; PULSE 92; RESP 17; TEMP 36.7; O2SAT 95
[2020-01-10 06:00] VITALS: BP 129/85; PULSE 83; RESP 16; TEMP 36.7; O2SAT 95
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
[2020-01-10] MEDS: fluoxetine 20 mg Capsule PO (10:00)
[2020-01-10] MEDS: ARIPiprazole 10 mg Tablet 5 MG PO (10:00)
[2020-01-10 14:00] VITALS: BP 136/75; PULSE 86; RESP 16; TEMP 37.1; O2SAT 98
[2020-01-10] MEDS: hyDROXYzine 25 mg Capsule 50 MG PO (20:16)
[2020-01-10] MEDS: trazodone 50 mg Tablet PO (20:16)
[2020-01-10 21:11] VITALS: BP 124/87; PULSE 84; RESP 17; TEMP 36.7; O2SAT 99
[2020-01-11 05:51] VITALS: BP 114/77; PULSE 77; RESP 17; TEMP 36.7; O2SAT 95
[2020-01-11] MEDS: ARIPiprazole 10 mg Tablet 5 MG PO (07:59)
[2020-01-11] MEDS: fluoxetine 20 mg Capsule PO (07:59)
--- NOTE | 2020-01-11 13:35 | NPU.GN ---
Mikayla was very tired during the group session but did speak up when asked to. She appeared slightly withdrawn during the session but was alert when asked to participate.
[2020-01-11 14:00] VITALS: BP 122/81; PULSE 83; RESP 18; TEMP 37.1; O2SAT 98
--- NOTE | 2020-01-11 17:03 | P.PN_ITS ---
Subjective NPU Subjective: Interval history: The patient is heartbroken and cries abjectly. She complains of reality distortion. Her sorrow may be 1 of the reasons why she relapsed into meth abuse. She grieves over a lost relationship. Medications: Reviewed: Yes Medication Review Details: Current Medications Acetaminophen (Tylenol) 650 mg PO Q4H PRN PRN Reason: MILD PAIN Aripiprazole (Abilify) 10 mg PO DAILY EDDI Benztropine Mesylate (Cogentin) 1 mg PO BID PRN PRN Reason: Mild Extrapyramidal symptoms Camphor/Menthol/Phenol (Blistex) 1 applic TOPICAL Q1H PRN PRN Reason: DRYNESS Diphenhydramine HCl (Benadryl) 50 mg IM ONCE PRN PRN Reason: Severe Extrapyramidal Symptoms Diphenhydramine HCl (Benadryl) 50 mg IM Q4H PRN PRN Reason: Severe Aggression Fluoxetine HCl (Prozac) 20 mg PO DAILY EDDI Last Admin: 01/11/20 07:59 Dose: 20 mg Documented by: Hydroxyzine Pamoate (Vistaril) 50 mg PO Q6H PRN PRN Reason: ANXIETY Last Admin: 01/10/20 20:16 Dose: 50 mg Documented by: Loperamide HCl (Imodium Capsule) 2 mg PO Q6H PRN PRN Reason: DIARRHEA Lorazepam (Ativan) 2 mg IM Q4H PRN PRN Reason: Severe Aggression Nicotine (Nicoderm 21 Mg Patch) 1 patch TRANSDERMA DAILY PRN PRN Reason: NICOTINE WITHDRAWAL Nicotine Polacrilex (Nicorette) 2 mg BUCCAL Q2H PRN PRN Reason: NICOTINE WITHDRAWAL Non-Formulary Medication (Minocycline) 100 mg PO Q12H [facility] Olanzapine (Zyprexa Zydis) 5 mg PO Q4H PRN PRN Reason: Agitation/Psychosis Ondansetron HCl (Zofran) 4 mg PO Q6H PRN PRN Reason: NAUSEA AND VOMITING Trazodone HCl (Desyrel) 50 mg PO BEDTIME PRN PRN Reason: SLEEP Last Admin: 01/10/20 20:16 Dose: 50 mg Documented by: Mental Status Exam MSE Comments: This is an obese female, somewhat disheveled but no longer having green hair, with multiple tattoos on exposed skin, adequate dress and limited grooming and eye contact. No abnormal movements. Cooperative with exam, in great distress. Speech was pressured, of normal volume and still quite difficult to understand, although not dysarthric. Mood is considerably agitated; affect is often tearful. Thought processes are disorganized and mildly racing. Thought content: patient denied any suicidal or homicidal ideation although it seems like she is worried that she might hurt herself; she has already attempted to jump out of an ambulance but she is not good at explaining it. She denied homicidal ideation. There were no delusions reported, but a kind of hyper- anabaptism obsessive ideation exists. She denied any auditory or visual hallucinations. Attention and concentration are limited, and memory is somewhat unreliable, but none were formally tested. She is alert and oriented times three. Insight and judgment are impaired. Vitals/I&O/Wt Last Vital Signs Temp 98.7 F 01/11/20 14:00 Pulse 83 01/11/20 14:00 Resp 18 01/11/20 14:00 BP 122/81 01/11/20 14:00 Pulse Ox 98 01/11/20 14:00 Weight last 48 hrs Weight 231 lb 2 oz Weight 231 lb 3.2 oz Data NPU : 01/09/20 14:36 01/09/20 14:36 Involuntary Hold Information 96 Hour Hold: 96 Hour Involuntary Admission: Yes 96 Hour Hold Ending Date: 01/15/20 96 Hour Hold Ending Time: 12:01 Attestations NPU Medical Necessity Statement*: I anticipate 5-7 midnights additional stay. Time Spent in Patient Care: Greater than 35 minutes (>than 50% of time spent in counselling and/or direct pt care on unit) . 45 minutes Coding Level of Care Code Acute Personal Clothing Laundry Aide for Yelena Wilder
[2020-01-11 19:43] VITALS: BP 138/88; PULSE 90; RESP 17; TEMP 37.1; O2SAT 96
[2020-01-11] MEDS: trazodone 50 mg Tablet PO (20:11)
[2020-01-11] MEDS: hyDROXYzine 25 mg Capsule 50 MG PO (20:12)
[2020-01-12 05:31] VITALS: BP 127/85; PULSE 82; RESP 16; TEMP 36.9; O2SAT 96
[2020-01-12] MEDS: fluoxetine 20 mg Capsule PO (08:35)
[2020-01-12] MEDS: ARIPiprazole 10 mg Tablet PO (08:35)
--- NOTE | 2020-01-12 14:08 | PM.NDC ---
Diagnoses at Discharge Discharge Diagnosis (1) Suicidal ideation: Status: Resolved (2) Substance abuse: Status: Inactive (3) Methamphetamine-induced psychotic disorder: Status: Resolved Reason for Visit Reason for Visit: PSYCH EVAL Hospital Course Hospital Course Day #2 the patient is grief stricken and agitated. Pharmacotherapy is clearly insufficient. I am increasing the aripiprazole to 10 mg p.o. daily. Day #3 the patient is calmer today. I think the encouraged to aripiprazole is effectuating more organized mental state and a calmer mood. Day #4 the patient says she is ready to go. She is calm and she can keep herself safe in an outpatient environment. She denies suicidal or homicidal ideation, plan or intent. Discharge Summary The patient's medications (see discharge plans) will be available at [facility] outpatient pharmacy. She has placement at [facility]. And she will pursue follow-up at [facility]. Involuntary Hold Information 96 Hour Hold: 96 Hour Involuntary Admission: Yes 96 Hour Hold Ending Date: 01/15/20 96 Hour Hold Ending Time: 12:01 Mental Status Exam MSE Comments: This is an obese female who is clean and neat. She now makes good eye contact and exhibits no abnormal movements. She is cooperative with the exam and free of distress. Speech is of normal rate and volume without dysarthria, aprosody or pressure. Mood is calm; affect is appropriate. Thought processes are organized and free of blocking, racing and looseness of association. Patient denied suicidal or homicidal ideation, plan or intent. There is no evidence of psychosis, such as but not limited to hallucinations, delusions, ideas of reference, etc. Cognitive functions appear to be restored. She is alert and oriented times three. Insight and judgment are no longer impaired. Discharge Data Vitals: Last Vital Signs Temp 98.5 F 01/12/20 05:31 Pulse 82 01/12/20 05:31 Resp 16 01/12/20 05:31 BP 127/85 01/12/20 05:31 Pulse Ox 96 01/12/20 05:31 Discharge Plan Discharge Patient Disposition: Home Condition: Stable Prescriptions: New fluoxetine 20 mg Capsule 20 mg PO DAILY 30 Days Qty: 30 RF: 4 Minocycline 100 mg PO Q12H 30 Days RF: 0 Continued levothyroxine 150 mcg Tablet 75 mcg PO DAILY 30 Days Qty: 30 RF: 4 Premarin 0.625 mg Tablet 0.625 mg PO DAILY 30 Days Qty: 30 RF: 4 aripiprazole 10 mg Tablet 5 mg PO DAILY 30 Days Qty: 30 RF: 4 Discontinued lorazepam 0.5 mg Tablet 0.5 mg PO BID PRN (Reason: Anxiety) Qty: 30 RF: 4 desvenlafaxine succinate [Pristiq] 50 mg Tablet Extended Release 24 Hr 50 mg PO DAILY Qty: 30 RF: 4 Excedrin Migraine 250-250-65 mg Tablet 2 tab PO PRN RF: 0 trazodone 50 mg tablet 50 mg PO BEDTIME PRN (Reason: Sleep) RF: 0 imepicmnvz-efnzgjxalowip-uwbk [Fioricet] 50-300-40 mg capsule 1 cap PO Q6H PRN (Reason: pain) Qty: 10 RF: 0 Discharge Orders: Discharge Order (Routine); Ordered 01/12/20 Ordered By: Pankaj Lira Referrals: [facility] [Outside] - 1-3 days (call about getting follow-up appointment. Ask about getting psychiatric medication appointment and individual therapy. ) Carolyn Orozco APN [Primary Care Provider] - 01/21/20 1:30 pm Discharge Diet: Usual diet Discharge Activity: Resume usual activity Discharge Attestations NPU Time Spent in Discharge Care*: greater than 30 min Specific Discharge Activities: Specific discharge activities: educating patient, discussing with pcp/other providers, discussing with field nurse case manager/social workers/dc planners, documenting/other paperwork and evaluating patient/reviewing data Other discharge activites (optional): Risk assessment Status at Discharge: Cognitive status at discharge: cognitively intact, Behavioral status at discharge: cooperative, Functional status at discharge: independent ambulation Overall status at discharge: patient is back to baseline Coding Level of Care Code Acute [employer] Skills for g Fwd Diagnoses Suicidal ideation R45.851 Substance abuse F19.10 Methamphetamine-induced psychotic disorder F15.959
[2020-01-12 14:21] VITALS: BP 127/85; PULSE 82; RESP 16; TEMP 36.9; O2SAT 96
--- NOTE | 2020-01-13 08:01 | NPU.GN ---
Neuropsych Unit Group Topic: Building Happiness General Mood of Group: Group members participated much more today than yesterday. Mikayla spoke up quite a bit voluntarily, rather than only when asked to. She appeared much more attentive this afternoon and had a positive attitude.
== END 2020-01-12 15:23 | disposition home or self-care (01) | DRG 897 ==
LOC: ER 15:35 → NP 15:43
PROVIDERS: Admitting Provider Psychiatry & Neurology Psychiatry; Emergency Provider Emergency Medicine; PCP Nurse Practitioner; Visit Provider Psychiatry & Neurology Psychiatry
DX: F15.159 Other stimulant abuse with stimulant-induced psychotic disorder, unspecified (principal); R45.851 Suicidal ideations; F32.9 Major depressive disorder, single episode, unspecified; Z59.0 Homelessness; Z79.890 Hormone replacement therapy
CPT/HCPCS: 12345; 36415; 80053; 80306; 80307; 81025; 85025; 96372; 99284; J1630; J2060

== ENCOUNTER 2021-07-13 23:45 | Emergency (ER) | payer MEDICAID, SELFPAY ==
[2021-07-14] VITALS: BP 192/138; PULSE 97; RESP 18; TEMP 36.9; O2SAT 98; BMI 45.0
--- NOTE | 2021-07-14 00:27 | ED_ITS ---
HPI - Extremity Problem General: Chief complaint: Extremity Problem,Nontraumatic Stated complaint: FEELS LIKE HER HANDS AND FEET ARE SWOLLEN Time Seen by Provider: 07/14/21 00:07 Source: patient and EMS Mode of arrival: EMS Limitations: no limitations History of Present Illness: 41-year-old female who states that she has got some chronic inflammatory diseases but states she has never been formally zoey gnosed with anything. She states over the last 3 to 4 days she been having pain in all her joints with she feels like swelling. She states it seems to be intermittent is mainly in her hands wrists feet and ankles. States pain sharp in nature rates it a 6 out of 10 denies any difficulty walking denies any fevers denies any recent illnesses. Patient also states she was at a [employer] 2 days ago and used methamphetamine Associated symptoms: Deny chest pain, fever(s) or rash Review of Systems Const: Denies: fever(s), chills, body aches or change in appetite Eyes: Denies: blurry vision or eye discomfort ENMT: Denies: throat pain or dental pain Card: Denies: chest pain Resp: Denies: dyspnea GI: Denies: abdominal pain, nausea, vomiting or diarrhea : Denies: dysuria Musc: Reports: joint pain Skin/Breast: Denies: rash Neuro: Denies: headache(s) Psych: Denies: depression Moy/Lymph: Denies: easy bruising All/Imm: Denies: urticaria PFSH ED PFSH: Medical History Methamphetamine-induced psychotic disorder Family History Unknown Psychiatric illness The patient reportsmental health issues on both sides of the family including schizophrenia on her dad?s side, she denies addiction issues. She initially had denied that there were any mental health issues on her mom?s side, but then reported that her maternal grandfather killed himself, but then she later said that she thinks he may have been worried about having Alzheimer?s, or something like that. Social History Smoking and tobacco status: never smoked Desire information about alcohol rehabilitation?: No Other details last alcohol use: Patient states she doesn't drink. Desire information about substance/drug rehabilitation?: Yes Counseling given: Yes (Referral to recovery programs will be provided) Last substance use date: 01/08/20 Other details last substance use: This is on approximation; patient is not able to give me a clear history of methamphetamine use. Adopted: No Caregiver/support person: No Lives independently: Yes Housing: Homeless Marital status: Marital status details: The patient is homeless. Her daughter lives with her , from whom the patient is but there has been no legal change. Physical Exam Const: COMMON NORMALS: no acute distress, patient oriented x3 and healthy appearing HENMT: COMMON NORMALS: normocephalic and atraumatic HEAD & SCALP: normocephalic and atraumatic Eye: COMMON NORMALS: Equal, round and reactive pupils present and EOMs intact bilaterally PUPIL: Yes Equal, round and reactive pupils present Neck/C-Spine: COMMON NORMALS: full ROM and supple Chest: COMMONS NORMALS: normal inspection of the chest and normal palpation of entire chest wall Resp: COMMON NORMALS: normal respiratory effort, No retractions, No use of accessory muscles and clear to auscultation bilaterally AUSCULTATION: clear to auscultation bilaterally Cardio: COMMON NORMALS: regular rate, regular rhythm and No murmurs present (Cardio) RATE: regular rate RHYTHM: regular rhythm GI: COMMON NORMALS: Normal to inspection, nondistended, normoactive bowel sounds present, Soft to palpation, non-tender and no masses PALPATION: Yes Soft to palpation Extremity: COMMON NORMALS: normal to inspection and full ROM Neuro: COMMON NORMALS: patient oriented x3, moves all extremities and no focal motor deficits Psych: COMMON NORMALS: mental status grossly normal, Normal thought process present and cooperative THOUGHT PROCESS: Normal thought process present Skin: COMMON NORMALS: no rashes or lesions noted and no wounds GENERAL SKIN EXAM: no rashes or lesions noted Course Vital Signs: Vital signs: Vital Signs Temperature 98.4 F 07/14/21 00:00 Pulse Rate 97 07/14/21 00:00 Respiratory Rate 20 H 07/14/21 00:54 Blood Pressure 192/138 07/14/21 00:00 Pulse Oximetry 98 07/14/21 00:00 MDM - Extremity (Nontraumatic) Medical Decision Making Patient presents with joint pain has been chronic in nature she is well- appearing here pains improved she has no signs of any infection. She did have a recent methamphetamine use that could be contributing as well. She is to follow -up with PCP and return if worsening. Lab Data : 07/14/21 00:50 04 00:50 Laboratory Results WBC 10.7 10^3/uL (4.0-10.0) H 07/14/21 00:50 RBC 4.35 10^6/uL (4.1-5.3) 07/14/21 00:50 Hgb 10.5 g/dL (11.5-15.3) L 07/14/21 00:50 Hct 33.3 % (37.0-47.0) L 07/14/21 00:50 MCV 76.6 fl (81-99) L 07/14/21 00:50 MCH 24.1 pg (28.0-34.0) L 07/14/21 00:50 MCHC 31.5 g/dL (30.0-36.0) 07/14/21 00:50 RDW 14.6 % (12.1-15.1) 07/14/21 00:50 Plt Count 538 10^3/cmm (130-400) H 07/14/21 00:50 MPV 9.6 fL (7.4-10.4) 07/14/21 00:50 Neut % (Auto) 59.8 % 07/14/21 00:50 Lymph % (Auto) 31.3 % 07/14/21 00:50 Person % (Auto) 4.5 % 07/14/21 00:50 Eos % (Auto) 3.2 % 07/14/21 00:50 Baso % (Auto) 0.7 % 07/14/21 00:50 Neut # (Auto) 6.38 10^3/uL (1.8-7.7) 07/14/21 00:50 Lymph # (Auto) 3.3 10^3/uL (0.8-4.8) 07/14/21 00:50 Person # (Auto) 0.5 10^3/uL (0.2-0.9) 07/14/21 00:50 Eos # (Auto) 0.3 10^3/uL (0.0-0.8) 07/14/21 00:50 Baso # (Auto) 0.1 10^3/uL (0.0-0.1) 07/14/21 00:50 Nucleated RBC % (auto) 0 % 07/14/21 00:50 Nucleated RBCs # 0.0 /100WBC 07/14/21 00:50 Sodium 140 mmol/L (136-145) 07/14/21 00:50 Potassium 3.6 mmol/L (3.5-5.1) 07/14/21 00:50 Chloride 105 mmol/L (98-107) 07/14/21 00:50 Carbon Dioxide 23 mmol/L (22-29) 07/14/21 00:50 Anion Gap 15.6 (5-19) 07/14/21 00:50 BUN 9 mg/dL (6-20) 07/14/21 00:50 Creatinine 0.7 mg/dL (0.5-0.9) 07/14/21 00:50 GFR Calculation 92.7 mL/min (90-130) 07/14/21 00:50 Glucose 109 mg/dL (65-115) 07/14/21 00:50 Calculated Osmolality 289 mOsm/kg (285-295) 07/14/21 00:50 Calcium 9.3 mg/dL (8.5-10.5) 07/14/21 00:50 Total Bilirubin 0.2 mg/dL (0.15-1.2) 07/14/21 00:50 AST 19 U/L (0-32) 07/14/21 00:50 ALT 28 U/L (0-33) 07/14/21 00:50 Alkaline Phosphatase 92 IU/L (35-105) 07/14/21 00:50 Total Protein 8.0 g/dL (6.6-8.7) 07/14/21 00:50 Albumin 4.1 g/dL (3.5-5.2) 07/14/21 00:50 Globulin 3.9 g/dL (1.3-4.6) 07/14/21 00:50 HCG, Qual Negative (Negative) 07/14/21 00:50 Discharge Plan Discharge Patient Disposition: Home Clinical Impression: Joint pain Condition: Stable Prescriptions: New Naprosyn 500 mg tablet 500 mg PO BID PRN (Reason: pain) Qty: 20 0RF No Action fluoxetine 20 mg Capsule 20 mg PO DAILY 30 Days Qty: 30 4RF levothyroxine 150 mcg Tablet 75 mcg PO DAILY 30 Days Qty: 30 4RF Rx Instructions: PT UNABLE TO CONFIRM MEDICATIONS. GOING BY MED HISTORY AND PHARMACY LIST. Premarin 0.625 mg Tablet 0.625 mg PO DAILY 30 Days Qty: 30 4RF Rx Instructions: PT UNABLE TO CONFIRM MEDICATIONS. GOING BY MED HISTORY AND PHARMACY LIST. aripiprazole 10 mg Tablet 5 mg PO DAILY 30 Days Qty: 30 4RF Rx Instructions: PT UNABLE TO CONFIRM MEDICATIONS. GOING BY MED HISTORY AND PHARMACY LIST. RX FILLED LAST ON 08/27/2019 Discharge Orders: Discharge ED (Routine); Ordered 07/14/21 Ordered By: Malik Cole Referrals: Carolyn Orozco APN [Primary Care Provider] - 1-3 days Discharge Diet: Advance as tolerated Discharge Activity: Resume usual activity Patient Instructions: Joint Pain Coding Level of Care Code ED Filing And Polishing Supervisor for Eileeng Fwd Exam Comprehensive
[2021-07-14 00:37] VITALS: BP 180/103; PULSE 87; RESP 18; O2SAT 97
[2021-07-14] MEDS: ondansetron 2 mg/ML SDV 2 mL 4 MG IVP (00:53)
[2021-07-14 00:54] VITALS: RESP 20
[2021-07-14] MEDS: morphine 4 mg/mL SDV 1 mL IVP (00:54)
[2021-07-14 01:01] LABS: Basophils # 0.1 10^3/uL (0.0-0.1); Basophils % 0.7 %; Eosinophils # 0.3 10^3/uL (0.0-0.8); Eosinophils % 3.2 %; Hematocrit 33.3 % (37.0-47.0); Hemoglobin 10.5 g/dL (11.5-15.3); Lymphocytes # 3.3 10^3/uL (0.8-4.8); Lymphocytes % 31.3 %; Mean Corpuscular HGB Conc 31.5 g/dL (30.0-36.0); Mean Corpuscular Hemoglobin 24.1 pg (28.0-34.0); Mean Corpuscular Volume 76.6 fl (81-99); Mean Platelet Volume 9.6 fL (7.4-10.4); Monocytes # 0.5 10^3/uL (0.2-0.9); Monocytes % 4.5 %; Neutrophils # 6.38 10^3/uL (1.8-7.7); Neutrophils % 59.8 %; Nucleated Red Blood Cells % 0 %; Platelet Count 538 10^3/cmm (130-400); Red Blood Count 4.35 10^6/uL (4.1-5.3); Red Cell Distribution Width 14.6 % (12.1-15.1); White Blood Count 10.7 10^3/uL (4.0-10.0)
[2021-07-14 01:25] LABS: Alanine Aminotransferase 28 U/L (0-33); Albumin Level 4.1 g/dL (3.5-5.2); Alkaline Phosphatase 92 IU/L (35-105); Anion Gap 15.6 (5-19); Aspartate Amino Transferase 19 U/L (0-32); Blood Urea Nitrogen 9 mg/dL (6-20); Calcium 9.3 mg/dL (8.5-10.5); Carbon Dioxide 23 mmol/L (22-29); Chloride 105 mmol/L (98-107); Globulin 3.9 g/dL (1.3-4.6); Glomerular Filtration Rate 92.7 mL/min (90-130); Glucose 109 mg/dL (65-115); Osmolality Calculated 289 mOsm/kg (285-295); Potassium 3.6 mmol/L (3.5-5.1); Sodium 140 mmol/L (136-145); Total Bilirubin 0.2 mg/dL (0.15-1.2)
[2021-07-14 01:29] LABS: HCG, Serum Qual Negative (Negative)
[2021-07-14 01:30] VITALS: BP 179/103; PULSE 83; RESP 18; O2SAT 97
[2021-07-14] MEDS: dexamethasone 10 mg/mL INJ IVP (02:04)
[2021-07-14 02:07] VITALS: BP 133/100; PULSE 82; RESP 18; O2SAT 93
[2021-07-14 02:23] VITALS: BP 160/100; PULSE 91; RESP 18; O2SAT 96
== END 2021-07-14 02:15 | disposition home or self-care (01) ==
PROVIDERS: Emergency Provider Emergency Medicine; PCP Nurse Practitioner
DX: M25.50 Pain in unspecified joint (principal)
CPT/HCPCS: 80053; 84703; 85025; 96374; 96375; 99283; J1100; J2270; J2405

== ENCOUNTER 2021-12-20 17:08 | Emergency (ER) | payer MEDICAID, SELFPAY ==
[2021-12-20 17:10] VITALS: BP 142/94; PULSE 82; RESP 18; TEMP 36.8; O2SAT 97; BMI 40.7
--- NOTE | 2021-12-20 17:30 | ED_ITS ---
HPI - General Adult General: Chief complaint: General Medical Stated complaint: Nausea Time Seen by Provider: 12/20/21 17:26 History of Present Illness: Patient is a 41-year-old female that comes to the ED with acute anxiety/panic attack. Patient has a history of anxiety and panic attacks. She states that she has been having more frequent anxiety and panic attacks over the past month. Today she started feeling really anxious and then developed some chest tightness, shortness of breath and nausea. She describes feeling impending doom as well. Most of her symptoms have resolved before coming to the ED. She is still having some anxiety currently. Patient states she has a history of drug use but has been clean now for the past month. She endorses having a lot of stress though over the past month which is leading to her increased anxiety and panic attacks. Associated symptoms: Reports dyspnea (episodic-panic attack); Deny chest pain, headache(s), nausea, rash, palpitations or vomiting Review of Systems Const: Denies: fever(s), chills or fatigue Eyes: Denies: change in vision or eye discomfort ENMT: Denies: throat pain, odynophagia, nasal discharge or nasal congestion Card: Denies: chest pain, palpitations, edema, swelling of feet/ankles, dyspnea on exertion or orthopnea Resp: Reports: dyspnea (episodic-panic attack); Denies: productive cough or non-productive cough GI: Denies: abdominal pain, nausea, vomiting, diarrhea, constipation or hematochezia : Denies: flank pain, dysuria or hematuria Musc: Denies: neck pain, back pain or extremity swelling Skin/Breast: Denies: rash or new lesions Neuro: Denies: headache(s), numbness in extremities or weakness in extremities Psych: Reports: anxiety and panic attacks [facility] ED PFSH: Medical History Methamphetamine-induced psychotic disorder Family History Unknown Psychiatric illness The patient reportsmental health issues on both sides of the family including schizophrenia on her dad?s side, she denies addiction issues. She initially had denied that there were any mental health issues on her mom?s side, but then reported that her maternal grandfather killed himself, but then she later said that she thinks he may have been worried about having Alzheimer?s, or something like that. Social History Smoking and tobacco status: never smoked Desire information about alcohol rehabilitation?: No Other details last alcohol use: Patient states she doesn't drink. Desire information about substance/drug rehabilitation?: Yes Counseling given: Yes (Referral to recovery programs will be provided) Last substance use date: 01/08/20 Other details last substance use: This is on approximation; patient is not able to give me a clear history of methamphetamine use. Adopted: No Caregiver/support person: No Lives independently: Yes Housing: Homeless Marital status: Marital status details: The patient is homeless. Her daughter lives with her , from whom the patient is but there has been no legal change. Physical Exam Const: COMMON NORMALS: no acute distress, patient oriented x3, healthy appearing and alert GENERAL APPEARANCE: cooperative and comfortable HENMT: COMMON NORMALS: normocephalic HEAD & SCALP: normocephalic MOUTH: Normal oral and palatal mucosa present THROAT: posterior oropharynx normal and uvula midline Neck/C-Spine: COMMON NORMALS: supple GENERAL: Yes normal visual inspection Resp: COMMON NORMALS: normal respiratory effort, No retractions, No use of accessory muscles and clear to auscultation bilaterally AUSCULTATION: clear to auscultation bilaterally Cardio: COMMON NORMALS: regular rate, regular rhythm, S1 normal heart sound present, S2 normal heart sound present, No gallops present (Cardio), No clicks present (Cardio), No murmurs present (Cardio) and Peripheral pulses 2+ throughout RATE: regular rate RHYTHM: regular rhythm HEART SOUNDS: S1 normal heart sound present and S2 normal heart sound present PERIPHERAL PULSES: Peripheral pulses 2+ throughout GI: COMMON NORMALS: Normal to inspection, nondistended, normoactive bowel sounds present, Soft to palpation, non-tender and no masses PALPATION: Yes Soft to palpation : COMMON NORMALS: Yes no CVA tenderness BLADDER/KIDNEY EXAM: Yes no CVA tenderness Back/Pelvis: COMMON NORMALS: no CVA tenderness Extremity: COMMON NORMALS: normal to inspection Neuro: COMMON NORMALS: patient oriented x3 SENSORIUM/ORIENTATION: Yes alert GAIT: Yes Normal gait present Skin: GENERAL SKIN EXAM: dry skin Course Vital Signs: Vital signs: Vital Signs Temperature 98.3 F 12/20/21 17:10 Pulse Rate 82 12/20/21 17:10 Respiratory Rate 18 12/20/21 17:10 Blood Pressure 142/94 12/20/21 17:10 Pulse Oximetry 97 12/20/21 17:10 Oxygen Delivery Me thod 12/20/21 17:10 MDM - General Adult Medical Decision Making Patient is a 41-year-old female that comes to the ED with acute anxiety/panic attack. Patient has a history of anxiety and panic attacks. She states that she has been having more frequent anxiety and panic attacks over the past month. Today she started feeling really anxious and then developed some chest tightness, shortness of breath and nausea. Vitals are stable. Patient appears nontoxic in no acute distress. Patient's symptoms mostly resolved before arrival to the ED. She still feels anxious currently. EKG showed normal sinus rhythm with no ST segment elevation or depression seen. She was given a dose of Ativan here in the ED and her symptoms improved. She was diagnosed with acute anxiety and was discharged home with a prescription for Vistaril as needed for acute anxiety. Return ED precautions given. Patient understood and agreed with plan. EKG Data EKG 1: EKG interpretation date: 12/20/21 Interpretation: Normal sinus rhythm, no ST segment elevation or depression seen, 78 bpm. Discharge Plan Discharge Patient Disposition: Home Clinical Impression: Acute anxiety Condition: Stable Prescriptions: New Vistaril 50 mg capsule 50 mg PO BID PRN (Reason: acute anxiety) Qty: 20 0RF No Action fluoxetine 20 mg Capsule 20 mg PO DAILY 30 Days Qty: 30 4RF levothyroxine 150 mcg Tablet 75 mcg PO DAILY 30 Days Qty: 30 4RF Rx Instructions: PT UNABLE TO CONFIRM MEDICATIONS. GOING BY MED HISTORY AND PHARMACY LIST. Premarin 0.625 mg Tablet 0.625 mg PO DAILY 30 Days Qty: 30 4RF Rx Instructions: PT UNABLE TO CONFIRM MEDICATIONS. GOING BY MED HISTORY AND PHARMACY LIST. aripiprazole 10 mg Tablet 5 mg PO DAILY 30 Days Qty: 30 4RF Rx Instructions: PT UNABLE TO CONFIRM MEDICATIONS. GOING BY MED HISTORY AND PHARMACY LIST. RX FILLED LAST ON 08/27/2019 Naprosyn 500 mg tablet 500 mg PO BID PRN (Reason: pain) Qty: 20 0RF Discharge Orders: Discharge ED (Routine); Ordered 12/20/21 Ordered By: Nixon Gardner Referrals: Carolyn Orozco PROSTHETICS ASSISTANT [Primary Care Provider] - Discharge Diet: Regular Discharge Activity: Increase activity as tolerated Patient Instructions: Anxiety (ED), Panic Attack (ED) Activity Restrictions/Additional Instructions: Follow-up with medical provider as directed in the next 5 to 7 days for reevaluation. Take medications as prescribed. Return to the ER or your medical provider if condition worsens. Please read and understand discharge instructions. Thank you for choosing [facility] for your healthcare needs today. Please realize this is an emergency room and that we are providing you with a medical screening exam and this may not be complete and all inclusive of all the testing and or work up that you may need to determine your ailment or severity of your illness. It is very important that you follow up as instructed or that you return to the Emergency Department should you have concerns or if your condition changes or worsens in any way. Coding Level of Care Code ED Delivery Man for Yelena Fwd Exam Comprehensive
--- NOTE | 2021-12-20 17:32 | ECG_ITS ---
[facility] Test Date: 2021-12-20 Pat Name: Mikayla Crawford Department: Room: Gender: Female Inspector Crystal: : 1980 Requested By: Nixon Gardner Order Number: [id number] Cornell MD: Pa Chandler M.D. Measurements Intervals [place] Rate: 78 P: 35 IA: 157 QRS: 38 QRSD: 87 T: 30 QT: 374 QTc: 428 Interpretive Statements SINUS RHYTHM POSSIBLE RIGHT VENTRICULAR CONDUCTION DELAY [RSR (QR) IN V1/V2] INTERPRETATION BASED ON A DEFAULT AGE OF 40 YEARS No previous ECG available for comparison Electronically Signed On 12-21-2021 10:34:27 CDT by Pa Chandler M.D. [email or web address]
[2021-12-20] MEDS: LORazepam 1 mg Tablet PO (18:13)
== END 2021-12-20 19:21 | disposition home or self-care (01) ==
PROVIDERS: Emergency Provider Physician Assistant; PCP Nurse Practitioner
DX: F41.9 Anxiety disorder, unspecified (principal)
CPT/HCPCS: 93005; 99283